=== PATIENT | female | born 1965 | race Two or more races ===

== ENCOUNTER → 2020-04-04 | Outpatient (CLI) | payer BC | LOC: MAMMO 09:05 | PROVIDERS: ATTEND Family Medicine | DX: Z12.31 Encounter for screening mammogram for malignant neoplasm of breast (principal) | CPT/HCPCS: 77067 ==

== ENCOUNTER → 2021-04-29 | Outpatient (CLI) | payer BC | LOC: MAMMO 12:53 | PROVIDERS: ATTEND Family Medicine | DX: Z12.31 Encounter for screening mammogram for malignant neoplasm of breast (principal) | CPT/HCPCS: 77067 ==